=== PATIENT | male | born 1985 | race Caucasian/White ===

== ENCOUNTER 2017-08-15 16:45 | Emergency (ER) | payer BC ==
[2017-08-15 16:52] VITALS: BP 136/101
[2017-08-15] MEDS ORDERED: Ondansetron 4 MG/2 ML SDV IVPUSH ONE (16:54)
[2017-08-15] MEDS ORDERED: Lactated Ringers 1,000 ML IV ONE (16:54)
[2017-08-15] MEDS ORDERED: Metoclopramide 10 MG/2 ML SDV IVPUSH ONE (16:58)
--- NOTE | 2017-08-15 17:04 | EDM.PDOC ---
ED HPI GENERAL MEDICAL PROBLEM - General Chief Complaint: Gastrointestinal Problem Stated Complaint: ILLNESS Time Seen by Provider: 08/15/17 16:50 Source of Information: Reports: Patient, EMS, Old Records History Limitations: Reports: No Limitations - History of Present Illness INITIAL COMMENTS - FREE TEXT/NARRATIVE: 31 yo male transported from his home via EMS for nausea, vomiting, and diarrhea. No fever. No bleeding. Unknown exposures. Has some abdominal cramping. Onset about 10 am today. Onset: Today Onset Date: 08/15/17 Onset Time: 10:00 Duration: Constant Location: Reports: Abdomen Quality: Reports: Other (cramping) Severity: Severe Improves with: Reports: None Worsens with: Reports: Eating Context: Reports: Other (unknown) Associated Symptoms: Reports: Nausea/Vomiting, Shortness of Breath (breathing hard all day.). Denies: Cough, Fever/Chills, Rash Treatments CHART WRITER: Reports: Other (see below) (none) - Related Data Allergies Allergy/AdvReac Type Severity Reaction Status Date / Time No Known Allergies Allergy Verified 05/26/13 15:33 Home Meds: Home Meds ALPRAZolam [Alprazolam] 1 tab PO DAILY 08/15/17 [History] Escitalopram Oxalate [Escitalopram Oxalate] 1 tab PO DAILY 08/15/17 [History] Ranitidine HCl [Ranitidine] 1 tab PO DAILY 08/15/17 [History] amLODIPine Besylate [Amlodipine Besylate] 1 tab PO DAILY 08/15/17 [History] ED ROS GENERAL - Review of Systems Review Of Systems: See Below Constitutional: Reports: Malaise, Weakness, Decreased Appetite HEENT: Reports: No Symptoms Respiratory: Reports: Shortness of Breath (breathing hard since onset of sx's). Denies: Wheezing, Pleuritic Chest Pain, Cough, Sputum, Hemoptysis Cardiovascular: Reports: Lightheadedness (when up) Endocrine: Reports: No Symptoms GI/Abdominal: Reports: Abdominal Pain (cramps), Diarrhea, Decreased Appetite, Nausea, Vomiting. Denies: Constipation, Distension, Flatus, Hematemesis, Hematochezia, Melena : Reports: No Symptoms Musculoskeletal: Reports: No Symptoms Skin: Reports: No Symptoms Neurological: Reports: No Symptoms Psychiatric: Reports: No Symptoms ED EXAM, GI/ABD - Physical Exam Exam: See Below Exam Limited By: No Limitations General Appearance: Alert, WD/WN, Mild Distress, Obese Eyes: Bilateral: Normal Appearance Ears: Normal External Exam, Normal Canal, Hearing Grossly Normal, Normal TMs Nose: Normal Inspection, Normal Mucosa, No Blood Throat/Mouth: Normal Inspection, Normal Lips, Normal Oropharynx, Normal Voice, No Airway Compromise Head: Atraumatic, Normocephalic Neck: Normal Inspection, Supple, Non-Tender Respiratory/Chest: No Respiratory Distress, Lungs Clear, Normal Breath Sounds, No Accessory Muscle Use, Other (mild hyperventilation) Cardiovascular: Regular Rate, Rhythm, No Edema GI/Abdominal Exam: Normal Bowel Sounds, Soft, Tender (mild diffuse.), Other ( obese with striae). No: Guarding, Rigid, Rebound Extremities: Normal Inspection, Normal Range of Motion, Non-Tender, No Pedal Edema Neurological: Alert, Oriented, CN II-XII Intact, Normal Cognition, No Motor/ Sensory Deficits Psychiatric: Normal Affect, Normal Mood Skin Exam: Warm, Dry, Intact, Normal Color, No Rash Lymphatic: No Adenopathy Course - Vital Signs Last Recorded V/S: Last Vital Signs Temp 35.4 C 08/15/17 17:32 Pulse 72 08/15/17 17:32 Resp 20 08/15/17 17:32 BP 136/101 H 08/15/17 17:32 Pulse Ox 100 08/15/17 17:32 - Orders/Labs/Meds Orders: Active Orders 24 hr Category Date Time Status Lactated Ringers [Ringers, Lactated] 1,000 ml Med 08/15/17 16:54 Active IV BOLUS Medication Orders Lactated Ringer's (Ringers, Lactated) 1,000 mls @ 1,000 mls/hr IV BOLUS ONE Stop: 08/15/17 17:53 Last Admin: 08/15/17 17:21 Dose: 1,000 mls/hr Labs: Laboratory Tests 08/15/17 Range/Units 17:14 Sodium 141 (140-148) mmol/L Potassium 3.8 (3.6-5.2) mmol/L Chloride 104 (100-108) mmol/L Carbon Dioxide 21 (21-32) mmol/L Anion Gap 16.1 H (5.0-14.0) mmol/L BUN 18 (7-18) mg/dL Creatinine 1.3 (0.8-1.3) mg/dL Est Cr Clr Drug Dosing 99.31 mL/min Estimated GFR (MDRD) > 60 (>60) Glucose 157 H (74-106) mg/dL Calcium 9.6 (8.5-10.1) mg/dL Meds: Medications Generic Name Dose Route Start Last Admin Trade Name Freq PRN Reason Stop Dose Admin Lactated Ringer's 1,000 mls @ 1,000 mls/hr 08/15/17 16:54 08/15/17 17:21 Ringers, Lactated IV 08/15/17 17:53 1,000 mls/hr BOLUS ONE Administration Discontinued Medications Generic Name Dose Route Start Last Admin Trade Name Freq PRN Reason Stop Dose Admin Diphenoxylate HCl/Atropine 2 tab 08/15/17 17:30 Lomotil 0.025-2.5 Mg PO 08/15/17 17:31 ONETIME ONE Metoclopramide HCl 10 mg 08/15/17 16:58 08/15/17 17:21 Reglan IVPUSH 08/15/17 16:59 10 mg ONETIME ONE Administration Ondansetron HCl 4 mg 08/15/17 16:54 08/15/17 17:21 Zofran IVPUSH 08/15/17 16:55 4 mg ONETIME ONE Administration Departure - Departure Time of Disposition: 18:00 Disposition: Home, Self-Care 01 Condition: Fair Clinical Impression: Nausea, vomiting, and diarrhea - Discharge Information Referrals: Matilde Cheek, [employer] [Primary Care Provider] - Forms: ED Department Discharge - My Orders Last 24 Hours: My Active Orders 08/15/17 16:54 Lactated Ringers [Ringers, Lactated] 1,000 ml IV BOLUS - Assessment/Plan Last 24 Hours: My Active Orders 08/15/17 16:54 Lactated Ringers [Ringers, Lactated] 1,000 ml IV BOLUS
[2017-08-15] MEDS ORDERED: Atropine/Diphenoxylate 0.025-2.5 MG Tab PO ONE (17:30)
== END 2017-08-15 19:26 | disposition home or self-care (01) ==
LOC: JP.ED 16:45
DX: R11.2 Nausea with vomiting, unspecified (principal); R19.7 Diarrhea, unspecified; Z79.899 Other long term (current) drug therapy
CPT/HCPCS: 36415; 80048; 96361; 96374; 96375; 99284; A9270; J2405; J2765; J7120

== ENCOUNTER 2021-10-13 12:47 | Emergency (ER) | payer BC ==
[2021-10-13 13:22] VITALS: BP 127/86; PULSE 123
== END 2021-10-13 13:34 | disposition home or self-care (01) ==
LOC: JP.ED 12:47
DX: K05.10 Chronic gingivitis, plaque induced (principal); F41.9 Anxiety disorder, unspecified; F32.A Depression, unspecified; Z79.899 Other long term (current) drug therapy
CPT/HCPCS: 99283

== ENCOUNTER 2022-06-10 03:29 | Emergency (ER) | payer BC ==
[2022-06-10] MEDS ORDERED: Sodium Chloride 0.9% 10 ML Syringe FLUSH PRN (03:49)
[2022-06-10] MEDS ORDERED: Sodium Chloride 0.9% 1,000 ML IV SCH (04:00)
[2022-06-10] MEDS ORDERED: Ondansetron 4 MG/2 ML SDV IVPUSH ONE (04:08)
[2022-06-10 04:18] LABS: ESTIMATED GFR 73 mL/min (>60)
[2022-06-10 04:46] VITALS: BP 145/94; PULSE 92
[2022-06-10 04:47] LABS: CORONAVIRUS COVID-19 NAA NEGATIVE (NEGATIVE)
== END 2022-06-10 05:15 | disposition home or self-care (01) ==
LOC: JP.ED 03:29
DX: K52.9 Noninfective gastroenteritis and colitis, unspecified (principal); E86.0 Dehydration; Z20.822 Contact with and (suspected) exposure to COVID-19
CPT/HCPCS: 0241U; 36415; 80053; 81001; 83605; 85025; 96360; 96374; 99284; J2405; J3490; J7030

== ENCOUNTER 2024-09-06 00:16 | Emergency (ER) | payer BC ==
[2024-09-06 00:36] VITALS: BP 125/68; PULSE 69
[2024-09-06] MEDS: Ondansetron 4 MG Tab.DIS PO ONE ×2 (01:02→02:54)
[2024-09-06 01:31] LABS: A/G RATIO 1.3 (1.2-2.2); ALANINE AMINOTRANSFERASE,ALT 42 U/L (12-78); ALBUMIN 4.4 g/dL (3.4-5.0); ALKALINE PHOSPHATASE 98 U/L (46-116); ASPARTATE AMNIOTRANSFERASE,AST 26 U/L (15-37); BILIRUBIN TOTAL 1.8 mg/dL (0.2-1.0); BLOOD UREA NITROGEN,BUN 17 mg/dL (7-18); CALCIUM 9.5 mg/dL (8.5-10.1); CARBON DIOXIDE,CO2 21 mmol/L (21-32); CHLORIDE,CL 102 mmol/L (100-108); CREATININE 1.2 mg/dL (0.8-1.3); EST CRCL DRUG DOSING (CG) 97.99 mL/min; ESTIMATED GFR 80 mL/min (>60); GLUCOSE RANDOM 164 mg/dL (74-106); PROTEIN TOTAL,TP 7.9 g/dL (6.4-8.2); SODIUM,NA 138 mmol/L (140-148)
[2024-09-06 01:33] LABS: ANION GAP 17.9 mmol/L (5.0-14.0); POTASSIUM,K 2.9 mmol/L (3.6-5.2)
[2024-09-06] MEDS: Potassium Chloride 20 MEQ Tab.ER PO ONE (02:54)
== END 2024-09-06 02:55 | disposition home or self-care (01) ==
LOC: JP.ED 00:16
DX: R11.2 Nausea with vomiting, unspecified (principal); R19.7 Diarrhea, unspecified; I10 Essential (primary) hypertension; Z79.899 Other long term (current) drug therapy
CPT/HCPCS: 36415; 80053; 80307; 99284; A9270; Q0162